=== PATIENT | male | born 1975 | race Caucasian/White ===

== ENCOUNTER 2020-12-12 09:07 | Emergency (ER) | payer OTHER, SELFPAY ==
[2020-12-12 09:17] VITALS: BP 166/107; PULSE 96; RESP 18; TEMP 36.3; O2SAT 96; BMI 31.4
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
[2020-12-12 09:28] VITALS: BP 175/119; PULSE 94; RESP 16; O2SAT 96
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
[2020-12-12] MEDS: ondansetron 2 mg/ML SDV 2 mL 4 MG IVP (10:11)
[2020-12-12 10:15] VITALS: RESP 16; O2SAT 98
[2020-12-12] MEDS: morphine 4 mg/mL SDV 1 mL IVP ×2 (10:15→11:24)
[2020-12-12] MEDS: ceFAZolin 1,000 mg SDV 1000 MG IVP (10:20)
[2020-12-12] MEDS: tetanus-dipt-pertussis 0.5 mL SDV IM (10:27)
[2020-12-12 11:24] VITALS: RESP 16; O2SAT 96
[2020-12-12 12:20] VITALS: BP 153/91; PULSE 79; RESP 14; O2SAT 97
== END 2020-12-12 12:15 | disposition home or self-care (01) ==
PROVIDERS: Emergency Provider Family Medicine
DX: S61.432A Puncture wound without foreign body of left hand, initial encounter (principal); W32.0XXA Accidental handgun discharge, initial encounter; Y92.009 Unspecified place in unspecified non-institutional (private) residence as the place of occurrence of the external cause
CPT/HCPCS: 12002; 73110; 73130; 90471; 90715; 96374; 96375; 96376; 99284; A6446; J0690; J2270; J2405

== ENCOUNTER → 2024-08-11 09:43 | Outpatient (BNVA) | payer OTHER, SELFPAY | PROVIDERS: PCP Family Medicine; Visit Provider Family Medicine | DX: I10 Essential (primary) hypertension (principal) | CPT/HCPCS: 80053; 80061; 84443; 85025 ==

== ENCOUNTER → 2025-04-19 15:09 | Outpatient (BNVA) | payer OTHER, SELFPAY | PROVIDERS: PCP Family Medicine; Visit Provider Family Medicine | DX: R05.9 Cough, unspecified (principal); R50.9 Fever, unspecified | CPT/HCPCS: 87400; 87426 ==